=== PATIENT | female | born 1985 | race Asian ===

== ENCOUNTER 2022-02-12 11:18 | Inpatient (IN) ==
[2022-02-12] MEDS ORDERED: LIDOCAINE 1% LOCAL 20 ML VIAL INFIL PRN (11:37)
[2022-02-12] MEDS ORDERED: OXYTOCIN 30 UNITS/500 ML BAG IV PRN ×2 (11:37→12:40)
[2022-02-12] MEDS ORDERED: SODIUM CHLORIDE 0.9% 1000ML 1,000 ML IV PRN (12:33)
[2022-02-12] MEDS ORDERED: DEXTROSE 50% 50 ML SYRINGE IV PRN ×2 (12:33→15:15)
[2022-02-12] MEDS ORDERED: INSULIN REGULAR 250 UNITS in SODIUM CHLORIDE 0.9% 247.5 ML IV PRN (12:33)
[2022-02-12 12:36] LABS: Hematocrit (blood only) 32.8 % (34.1-44.9); Hemoglobin 10.2 g/dl (12.0-16.0); Mean Corpuscular Hgb Conc 31.1 g/dL (32.0-36.0); Mean Corpuscular Volume 83.7 fL (80.0-100.0); Mean Platelet Volume 11.7 fL (9.4-12.3); Platelet Count 240 K/uL (130-400); RDW Coefficient of Variation 14.8 % (11.5-14.5); RDW Standard Deviation 45.2 fL (36.4-46.3); Red Blood Count 3.92 M/uL (3.93-5.22); White Blood Count 6.24 K/ul (4.8-10.8)
[2022-02-12] MEDS: LACTATED RINGER'S 1,000 ML IV PRN ×3 (12:39→22:25)
--- NOTE | 2022-02-12 12:40 | History & Physical Report ---
Date of Service February 12, 2022 Assessment & Plan (1) 38 weeks gestation of : (2) Type 1 diabetes mellitus affecting , antepartum: (3) Supervision of elderly primigravida: Plan admit, iv, labs. check lfts. plan pitocin and del valle ripening balloon. start iv insulin protocol. reviewed trt plan. fhts categ 1. pt agrees and desires to proceed. Admission and Anticipated Discharge Date Admission Date: February 12, 2022 History of Present Illness Chief Complaint: planned induction Primary Care Provider: MIKE PCP 36yo at 38+wks ega presents to L&D with recent diagnosis of ICP and underlying pregestational diabetes. Patient denies ctx, rom or vb. +FM. Had itching hands and feet and last week had bile acids drawn. They returned today elevated and MFM contacted and although did not meet >40 parameter given ega and symptoms, rec proceeding with induction of labor. Patient called and agreed and so came to LD. PNC c/b 1. AMA 2. DM, on insulin, seeing our endo. PNL rh pos, ri, gbs neg OBH: sab x 1 GYNH: nl paps, no std Allergies Allergy/AdvReac Type Severity Reaction Status Date / Time No Known Allergies Allergy Verified 02/08/22 16:15 Home Medications Medication Instructions Recorded Confirmed Type prenat.vits,urban,nym-rwka-juqqd 1 tab PO DAILY 06/30/21 02/12/22 History acetone (urine) test (Ketone Urine #100 ea 07/25/21 02/08/22 Rx Test strips) glucagon 3 mg/actuation nasal spray 3 mg intranasal ONCE PRN 07/25/21 02/12/22 Rx hypoglycemia #2 ea pen needle, diabetic 32 gauge x #500 ea 07/25/21 02/08/22 Rx 5/32" (BD Ultra-Fine Tabatha Pen Needle) aspirin 81 mg capsule 81 mg PO DAILY 08/21/21 02/12/22 History insulin detemir U-100 100 unit/mL See Rx Instructions subcut QPM 08/21/21 02/12/22 History (3 mL) subcutaneous pen (Levemir FlexTouch U-100 Insulin) blood-glucose sensor (Dexcom G6 #9 ea 09/15/21 02/08/22 Rx Sensor device) blood-glucose transmitter (Dexcom #1 ea 09/15/21 02/08/22 Rx G6 Transmitter device) insulin aspart U-100 100 unit/mL See Rx Instructions subcut TID #30 01/10/22 02/12/22 Rx (3 mL) subcutaneous pen (Novolog mL Flexpen U-100 Insulin aspart) Patient History Medical History (Updated 02/12/22 @ 12:43 by Cindy Cuevas MD, FACOG) History of chicken pox Type 1 diabetes mellitus since 2010 Surgical History (Updated 06/30/21 @ 15:25 by Toshia Barr) No history of previous surgery Family History (Updated 06/30/21 @ 15:09 by Toshia Barr) Mother Diabetes Hypertension Thyroid disease Denies family history of Ovarian cancer Breast cancer Colorectal cancer Social History (Updated 06/30/21 @ 15:11 by Toshia Barr) Smoking Status: Never smoker Hx Alcohol Use: No Hx Substance Use: No Preferred Language: Brazilian Spaghetti [employer] Helper Required: No Beliefs That Will Affect Care: None marital status: marital status details: Manny Varun (35) [phone] Current Living Situation: Spouse Current Living Situation Comment: lives with spouse, no pets current occupational status: employed current occupation: [employer] Other Information That Helps Us Care for You: No Feels Safe at Home: Yes Safety Concerns: Feels Safe At This Time Assistive Devices: None Review of Systems as per Subjective / HPI Physical Exam Constitutional: WD/WN, vitals as above Respiratory: normal respiratory effort, lungs clear to auscultation Cardiovascular: Rate/Rhythm: regular rate and regular rhythm Gastrointestinal (Abdomen): soft gravid nt Musculoskeletal: no edema nontender calves Neurologic: grossly normal Psychiatric: A+Ox3, euthymic affect Genitourinary: OB Exam Abdomen: + vertex and + estimated weight (7-8#) Manual OB Exam: + cervical dilation fingertip, + cervical effacement 50% and + station (post) -2 OB Exam Monitor Tracing: + external FHT monitor used, + external uterine monitor used (irreg), + category I and + normal FHT variability Results & Data ([facility]) Vital Signs (Past 12 Hours) Vital Signs Temp Pulse Resp BP 02/12/22 11:38 97.7 F 75 20 113/56 L 02/12/22 11:27 75 113/56 L Coding Level of Care Code None Diagnoses 38 weeks gestation of Z3A.38 Type 1 diabetes mellitus affecting , antepartum O24.019 Supervision of elderly primigravida O09.519
[2022-02-12 13:15] LABS: BUN Creatinine Ratio 15.3 (10-20); Bilirubin Direct 0.1 mg/dl (0-0.2); Bilirubin,Total 0.5 mg/dl (0.2-1.0); Calcium 8.1 mg/dl (8.5-10.1); Creatinine Clr Calc Pharmacy 151.7 ml/min; Est GFR (African American) 137.6 ml/min; Est GFR (Non-African American) 118.7 ml/min; Globulin 3.1 gm/dl (2.5-4.0); Potassium 4.1 mmol/L (3.5-5.1); Total Protein 6.1 gm/dl (6.0-8.3)
[2022-02-12] MEDS: DEXTROSE 5% 1,000 ML IV PRN ×2 (13:33→22:30)
[2022-02-12] MEDS ORDERED: GLUCOSE 40% GEL 15 GM TUBE PO PRN (15:15)
[2022-02-12] MEDS ORDERED: GLUCOSE 10 TAB/TUBE PO PRN (15:15)
[2022-02-12] MEDS ORDERED: CARBOHYDRATES FOR HYPOGLYCEMIA PO PRN (15:15)
[2022-02-12] MEDS ORDERED: GLUCAGON FOR INJ 1 MG VIAL IM PRN (15:15)
--- NOTE | 2022-02-12 21:03 | Labor Progress Brief Note ---
Date of Service February 12, 2022 Subjective feeling some contractions Assessment & Plan (1) Supervision of elderly primigravida: (2) Type 1 diabetes mellitus affecting , antepartum: (3) Cholestasis of : Plan c/w induction. good cx change. fhts categ 1. can have epidural on demand. Admission and Anticipated Discharge Date Admission Date: February 12, 2022 Physical Exam Constitutional: WD/WN, vitals as above Genitourinary: Manual OB Exam: + cervical dilation 6 cm, + cervical effacement 90%, + station -2 and + amniotic fluid (AROM) clear OB Exam Monitor Tracing: + external FHT monitor used, + external uterine monitor used (q2 pit at 17), + category I and + normal FHT variability del valle balloon in vagina and removed and then sve as noted. Results & Data ([facility]) Vital Signs (Past 12 Hours) Vital Signs Temp Pulse Resp BP 02/12/22 19:16 97.9 F 18 02/12/22 11:38 97.7 F 75 20 113/56 L 02/12/22 20:38 58 L 02/12/22 20:38 120/64 02/12/22 20:07 53 L 02/12/22 20:07 120/60 02/12/22 19:37 55 L 02/12/22 19:37 113/54 L 02/12/22 19:06 68 02/12/22 19:06 117/55 L 02/12/22 18:37 56 L 02/12/22 18:37 114/56 L 02/12/22 18:07 54 L 02/12/22 18:07 110/58 L 02/12/22 17:37 59 L 02/12/22 17:37 117/59 L 02/12/22 17:08 53 L 02/12/22 17:08 20 117/59 L 02/12/22 16:38 49 L 02/12/22 16:38 115/55 L 02/12/22 16:13 52 L 02/12/22 16:13 20 112/59 L 02/12/22 15:37 58 L 02/12/22 15:37 118/62 02/12/22 15:07 58 L 02/12/22 15:07 20 107/58 L 02/12/22 14:38 56 L 02/12/22 14:38 109/67 02/12/22 14:07 57 L 20 02/12/22 14:07 106/60 02/12/22 13:37 63 02/12/22 13:37 116/62 02/12/22 11:24 20 02/12/22 11:24 97.7 F 20 02/12/22 13:06 59 L 20 02/12/22 13:06 111/62 02/12/22 11:27 75 113/56 L Coding Level of Care Code None Diagnoses Supervision of elderly primigravida O09.519 Type 1 diabetes mellitus affecting , antepartum O24.019 Cholestasis of O26.619; K83.1
[2022-02-12] MEDS ORDERED: ePHEDrine sulfate 50 MG/ML AMP ONE (21:42)
[2022-02-12] MEDS ORDERED: fentaNYL citrate 100 MCG/2 ML VIAL ONE (21:42)
[2022-02-12] MEDS ORDERED: LIDOCAINE 2%/EPINEPHRINE 1:200,000 20 ML SDV ONE (21:43)
[2022-02-12] MEDS ORDERED: SODIUM CHLORIDE 0.9% INJ 10 ML VIAL ONE (21:43)
[2022-02-12] MEDS ORDERED: fentaNYL 2MCG/ML ROPIVACAINE 1.25MG/ML 100 ML BAG EPI ONE (21:43)
[2022-02-12] MEDS ORDERED: BUPIVACAINE 0.25% 30 ML VIAL ONE (21:43)
[2022-02-12] MEDS ORDERED: fentaNYL 2MCG/ML ROPIVACAINE 1.25MG/ML 100 ML BAG EPI PRN (21:51)
[2022-02-12] MEDS ORDERED: diphenhydrAMINE 50 MG/ML VIAL IV PRN (21:51)
[2022-02-12] MEDS ORDERED: NALBUPHINE HCL INJ 10 MG/ML AMP IV PRN (21:51)
[2022-02-12] MEDS ORDERED: NALOXONE HCL 1 MG in SODIUM CHLORIDE 0.9% 1000ML 1,000 ML IV PRN (21:51)
[2022-02-12] MEDS ORDERED: NALOXONE HCL 0.4 MG/1 ML VIAL/CARP IV PRN (21:51)
[2022-02-12] MEDS ORDERED: ePHEDrine sulfate 50 MG/ML AMP IV PRN (21:51)
[2022-02-12] MEDS ORDERED: ONDANSETRON INJ 2 MG/ML 2 ML VIAL IV PRN (21:51)
--- NOTE | 2022-02-12 21:51 | Anesthesiology Consultation ---
Date of Service February 12, 2022 Assessment & Plan ASA ASA3 Proposed Anesthesia Anesthesia Type: Labor Epidural Risk / Benefits Reviewed With: PT / POA / Parent / Guardian, Accepts Plan and Informed Consent Obtained History Height/Weight Height: 5 ft 9 in Weight: 81.193 kg Allergies Allergy/AdvReac Type Severity Reaction Status Date / Time No Known Allergies Allergy Verified 02/08/22 16:15 Medications Home Medications Medication Instructions Recorded Confirmed Last Taken prenat.vits,urban,dci-hhei-nqxbt 1 tab PO DAILY 06/30/21 02/12/22 02/11/22 09:00 acetone (urine) test (Ketone Urine #100 ea 07/25/21 02/12/22 Unknown Test strips) glucagon 3 mg/actuation nasal spray 3 mg intranasal ONCE PRN 07/25/21 02/12/22 Unknown hypoglycemia #2 ea pen needle, diabetic 32 gauge x #500 ea 07/25/21 02/08/22 Unknown 32" (BD Ultra-Fine Tabatha Pen Needle) aspirin 81 mg capsule 81 mg PO DAILY 08/21/21 02/12/22 02/11/22 14:00 insulin detemir U-100 100 unit/mL See Rx Instructions subcut QPM 08/21/21 02/12/22 02/12/22 07:30 (3 mL) subcutaneous pen (Levemir FlexTouch U-100 Insulin) blood-glucose sensor (Dexcom G6 #9 ea 09/15/21 02/12/22 Unknown Sensor device) blood-glucose transmitter (Dexcom #1 ea 09/15/21 02/08/22 Unknown G6 Transmitter device) insulin aspart U-100 100 unit/mL See Rx Instructions subcut TID #30 01/10/22 02/12/22 02/12/22 07:30 (3 mL) subcutaneous pen (Novolog mL Flexpen U-100 Insulin aspart) Active Medications Generic Name Dose Route Start Last Admin Trade Name Freq PRN Reason Stop Dose Admin Lactated Ringer's 1,000 mls @ 125 mls/hr 02/12/22 11:37 02/12/22 22:25 Lr IV 02/14/22 11:36 125 mls/hr .Q8H PRN Administration L&D Protocol Protocol Dextrose 1,000 mls @ 100 mls/hr 02/12/22 12:33 02/12/22 22:30 D5w IV 03/14/22 12:32 100 mls/hr .Q10H PRN Administration BSG 180 or below Protocol Insulin Human Regular 250 250 mls @ 1 mls/hr 02/12/22 12:33 02/12/22 22:29 units/ Sodium Chloride IV 03/14/22 12:32 0.5 units/hr .Q24H PRN 0.5 mls/hr BSG 80mg/dL or ABOVE Titration Protocol 1 UNITS/HR Oxytocin 30 units in 500 mls @ 17 mls/hr 02/12/22 12:40 02/12/22 18:00 Pitocin IV 02/14/22 12:39 1.02 units/hr .Q24H PRN 17 mls/hr Labor Induction/Augmentation Titration Protocol 1.02 UNITS/HR Past Medical History Medical History (Updated 02/12/22 @ 21:03 by Cindy Cuevas MD, FACOG) Cholestasis during History of chicken pox Type 1 diabetes mellitus since 2010 Exercise / Class Metabolic Activity II 4-5 Yardwork/Stairs/Walk up hill Past Family History Family History (Updated 06/30/21 @ 15:09 by Toshia Barr) Mother Diabetes Hypertension Thyroid disease Denies family history of Ovarian cancer Breast cancer Colorectal cancer Past Surgical History Surgical History (Updated 06/30/21 @ 15:25 by Toshia Barr) No history of previous surgery Past Anesthesia History No Hx of Anesthesia Complications and No Family Hx of Anesthesia Complications History of PONV No Hx of PONV and No Hx of Motion Sickness Social History Smoking Status: Never smoker Hx Alcohol Use: No Hx Substance Use: No Review of Systems denies fever/cough/ colds/ chest pain/ SOB/ KURTIS denies KURTIS Physical Exam Vital Signs Last Vital Signs Temp 36.7 C 02/12/22 21:03 Pulse 56 L 02/12/22 22:31 Resp 18 02/12/22 22:15 BP 103/50 L 02/12/22 22:31 Pulse Ox 99 02/12/22 22:30 ENMT Mouth: no TMJ abnormality and no dentition abnormality Thyromental Distance: > or= 3.5 Finger Breadths Mallampati Class: II Neck neck extension not limited Respiratory normal respiratory effort; no respiratory distress Auscultation: lungs clear to auscultation bilaterally Cardiovascular Rate/Rhythm: regular rate and regular rhythm Neurologic moves all extremities Psychiatric Orientation: alert and oriented x 3 Testing Laboratory Results 02/12/22 12:06 02/12/22 12:06 02/12/22 02/12/22 02/12/22 22:27 21:30 20:30 POC Glucose 86 106 H 113 H 02/12/22 02/12/22 02/12/22 19:33 19:03 17:59 POC Glucose 96 66 L* 77 02/12/22 02/12/22 02/12/22 17:01 15:59 15:29 POC Glucose 77 94 78 02/12/22 02/12/22 02/12/22 14:56 14:00 13:08 POC Glucose 54 L* 78 115 H 02/12/22 12:12 POC Glucose 129 H
[2022-02-13] MEDS: LACTATED RINGER'S 1,000 ML IV PRN (05:58)
--- NOTE | 2022-02-13 06:20 | Labor Progress Brief Note ---
Date of Service February 13, 2022 Subjective late entry, pt pushing, some bright red bleeding from likely laceration, asked to see pt by nursing Assessment & Plan (1) Type 1 diabetes mellitus affecting , antepartum: (2) Cholestasis of : (3) Supervision of elderly primigravida: (4) 38 weeks gestation of : Plan pt pushing and offered vacuum assistance as sometimes noting to nursing fatigue but she desires to cont to push on her own. will watch fhts and progress. Admission and Anticipated Discharge Date Admission Date: February 12, 2022 Physical Exam Constitutional: WD/WN, vitals as above Genitourinary: Manual OB Exam: + cervical dilation 10 cm, + cervical effacement 100% and + station + 3 OB Exam Monitor Tracing: + external FHT monitor used, + external uterine monitor used (q2-3), + category II, + normal FHT variability (+scalp stim response) and + variable decelerations bleeding noted but not as active now as cephalic lower. Results & Data ([facility]) Vital Signs (Past 12 Hours) Vital Signs Temp Pulse Resp BP Pulse Ox 02/12/22 19:16 97.9 F 18 02/13/22 06:15 66 99 02/13/22 06:12 85 92 02/13/22 06:10 98 H 98 02/13/22 06:05 18 02/13/22 06:05 98.4 F 18 02/13/22 06:05 98.4 F 76 18 99 02/13/22 06:02 83 213/112 H 02/13/22 06:00 99 02/13/22 06:00 84 02/13/22 06:00 86 92 02/13/22 05:55 72 99 02/13/22 05:50 100 H 99 02/13/22 05:45 79 99 02/13/22 05:40 103 H 100 02/13/22 05:35 76 98 02/13/22 05:32 82 140/95 02/13/22 05:30 78 99 02/13/22 05:25 80 99 02/13/22 05:20 77 96 02/13/22 05:18 103 H 93 02/13/22 05:17 76 124/57 L 02/13/22 05:15 100 H 100 02/13/22 05:10 98 H 92 02/13/22 05:05 74 99 02/13/22 05:04 73 92 02/13/22 05:01 20 02/13/22 05:01 97.9 F 20 02/13/22 05:03 75 116/56 L 02/13/22 05:00 105 H 99 02/13/22 04:58 98 H 93 02/13/22 04:55 86 100 02/13/22 04:50 100 02/13/22 04:50 79 02/13/22 04:50 93 H 85 L 02/13/22 04:48 81 115/56 L 02/13/22 04:45 93 H 100 02/13/22 04:40 75 100 02/13/22 04:37 66 92 02/13/22 04:35 96 H 100 02/13/22 04:31 71 114/54 L 02/13/22 04:30 72 100 02/13/22 04:27 77 90 02/13/22 04:25 80 100 02/13/22 04:20 70 100 02/13/22 04:19 76 94 02/13/22 04:17 74 118/58 L 02/13/22 04:15 74 99 02/13/22 04:14 73 91 02/13/22 04:10 85 99 02/13/22 04:08 70 92 02/13/22 04:05 76 99 02/13/22 04:03 69 113/52 L 02/13/22 04:00 71 100 02/13/22 03:58 68 93 02/13/22 03:56 22 02/13/22 03:56 98.4 F 22 02/13/22 03:55 77 100 02/13/22 03:50 70 100 02/13/22 03:49 74 93 02/13/22 03:48 76 117/57 L 02/13/22 03:45 82 91 02/13/22 03:42 100 H 93 02/13/22 03:40 71 100 02/13/22 03:35 70 93 02/13/22 03:30 67 95 02/13/22 03:29 68 91 02/13/22 03:25 65 100 02/13/22 03:20 56 L 100 02/13/22 03:18 53 L 89/52 L 02/13/22 03:15 52 L 100 02/13/22 03:10 53 L 100 02/13/22 03:05 56 L 100 02/13/22 03:03 58 L 123/57 L 02/13/22 03:00 63 98 02/13/22 02:55 63 100 02/13/22 02:50 61 100 02/13/22 02:48 57 L 110/54 L 02/13/22 02:45 61 100 02/13/22 02:40 62 100 02/13/22 02:35 60 100 02/13/22 02:32 58 L 108/55 L 02/13/22 02:30 68 100 02/13/22 02:29 63 91 02/13/22 02:25 59 L 100 02/13/22 02:20 56 L 100 02/13/22 02:18 52 L 109/55 L 02/13/22 02:12 18 02/13/22 02:12 98.1 F 18 02/13/22 02:15 51 L 100 02/13/22 02:10 68 100 02/13/22 02:05 65 100 02/13/22 02:02 55 L 113/63 02/13/22 02:00 60 99 02/13/22 01:55 53 L 99 02/13/22 01:50 57 L 99 02/13/22 01:48 56 L 113/59 L 02/13/22 01:45 57 L 99 02/13/22 01:40 59 L 100 02/13/22 01:35 64 100 02/13/22 01:34 66 120/59 L 02/13/22 01:30 87 16 100 02/13/22 01:25 62 100 02/13/22 01:20 57 L 99 02/13/22 01:17 57 L 112/57 L 02/13/22 01:15 61 100 02/13/22 01:10 67 100 02/13/22 01:05 66 100 02/13/22 01:01 59 L 113/59 L 02/13/22 01:00 55 L 100 02/13/22 00:55 58 L 100 02/13/22 00:50 60 100 02/13/22 00:47 70 117/58 L 02/13/22 00:45 100 02/13/22 00:45 61 02/13/22 00:45 65 90 02/13/22 00:31 18 02/13/22 00:31 98.1 F 18 02/13/22 00:40 58 L 100 02/13/22 00:35 100 02/13/22 00:35 61 02/13/22 00:35 65 90 02/13/22 00:30 70 100 02/13/22 00:27 78 91 02/13/22 00:25 63 99 02/13/22 00:20 60 100 02/13/22 00:15 64 99 02/13/22 00:16 67 95/52 L 02/13/22 00:10 60 99 02/13/22 00:05 64 96 02/13/22 00:06 66 88 L 02/13/22 00:02 58 L 101/52 L 02/13/22 00:00 60 94 02/12/22 23:59 91 02/12/22 23:59 57 L 02/12/22 23:55 99 02/12/22 23:55 63 02/12/22 23:50 100 02/12/22 23:50 68 02/12/22 23:47 63 02/12/22 23:47 105/56 L 02/12/22 23:45 100 02/12/22 23:45 62 02/12/22 23:40 100 02/12/22 23:40 61 02/12/22 23:35 99 02/12/22 23:35 72 02/12/22 23:33 92 02/12/22 23:33 75 02/12/22 23:33 98/56 L 02/12/22 23:30 99 02/12/22 23:30 65 02/12/22 23:25 99 02/12/22 23:25 62 02/12/22 23:20 98 02/12/22 23:20 64 02/12/22 23:20 108/54 L 02/12/22 23:17 65 02/12/22 23:17 102/50 L 02/12/22 23:15 99 02/12/22 23:15 65 02/12/22 23:09 16 02/12/22 23:09 98.1 F 16 02/12/22 23:10 99 02/12/22 23:10 70 02/12/22 23:05 100 02/12/22 23:05 73 02/12/22 23:01 61 02/12/22 23:01 93/53 L 02/12/22 23:00 98 02/12/22 23:00 56 L 02/12/22 22:55 99 02/12/22 22:55 59 L 02/12/22 22:50 99 02/12/22 22:50 62 02/12/22 22:45 16 02/12/22 22:45 16 02/12/22 22:28 18 02/12/22 22:28 18 02/12/22 22:46 60 02/12/22 22:46 97/53 L 02/12/22 22:45 99 02/12/22 22:45 58 L 02/12/22 22:40 100 02/12/22 22:40 64 02/12/22 22:35 99 02/12/22 22:35 59 L 02/12/22 22:30 99 02/12/22 22:30 58 L 02/12/22 22:31 56 L 02/12/22 22:31 103/50 L 02/12/22 22:25 100 02/12/22 22:25 57 L 02/12/22 22:26 57 L 02/12/22 22:26 101/51 L 02/12/22 22:22 62 02/12/22 22:22 111/53 L 02/12/22 22:20 100 02/12/22 22:20 66 02/12/22 22:20 106/57 L 02/12/22 22:15 18 02/12/22 22:15 18 02/12/22 22:18 66 02/12/22 22:18 119/58 L 02/12/22 22:16 72 02/12/22 22:16 129/57 L 02/12/22 22:15 100 02/12/22 22:15 71 02/12/22 22:14 67 02/12/22 22:14 119/56 L 02/12/22 22:10 22 02/12/22 22:10 22 02/12/22 22:12 65 02/12/22 22:12 124/58 L 02/12/22 22:10 100 02/12/22 22:10 69 02/12/22 22:05 99 02/12/22 22:05 66 02/12/22 22:06 72 02/12/22 22:06 135/63 02/12/22 22:00 100 02/12/22 22:00 70 02/12/22 21:55 100 02/12/22 21:55 77 02/12/22 21:50 100 02/12/22 21:50 75 02/12/22 21:37 71 02/12/22 21:37 117/57 L 02/12/22 21:03 18 02/12/22 21:03 98.1 F 18 02/12/22 21:07 68 02/12/22 21:07 98/52 L 02/12/22 20:38 58 L 02/12/22 20:38 120/64 02/12/22 20:07 53 L 02/12/22 20:07 120/60 02/12/22 19:37 55 L 02/12/22 19:37 113/54 L 02/12/22 19:06 68 02/12/22 19:06 117/55 L 02/12/22 18:37 56 L 02/12/22 18:37 114/56 L Coding Level of Care Code None Diagnoses Type 1 diabetes mellitus affecting , antepartum O24.019 Cholestasis of O26.619; K83.1 Supervision of elderly primigravida O09.519 38 weeks gestation of Z3A.38
[2022-02-13] MEDS ORDERED: OXYTOCIN 30 UNITS/500 ML BAG IV PRN (07:02)
[2022-02-13] MEDS ORDERED: OXYTOCIN 20 UNITS in LACTATED RINGER'S 1,000 ML IV SCH (07:02)
[2022-02-13] MEDS ORDERED: BENZOCAINE 20% AER SPR 82.5 GM CAN EXT PRN (07:02)
[2022-02-13] MEDS ORDERED: DIPHTHERIA/TETANUS/PERTUSSIS 0.5 ML SYR/VIAL IM ONE (07:02)
[2022-02-13] MEDS ORDERED: HYDROCORTISONE ACETATE 25 MG SUPP PR PRN (07:02)
[2022-02-13] MEDS ORDERED: ACETAMINOPHEN 325 MG TAB PO PRN (07:02)
[2022-02-13] MEDS ORDERED: oxyCODONE/ACETAMINOPHEN 5mg/325mg TAB PO PRN (07:02)
--- NOTE | 2022-02-13 07:03 | Delivery Summary ---
Vaginal Delivery Summary Date of Service February 13, 2022 Vaginal Delivery Summary and 3rd Degree LAC The patient was pushing, deep variable decels noted and she was complaining of maternal exhaustion. Offered and desired outlet vacuum. Additional local lidocaine injected 1% at perineum as suspected need for episiotomy. C/C/+3. Over 2 contractions with one pop off the cephalic was delivered over mediolateral episiotomy via vacuum assisted vaginal delivery. A loose nuchal x 1 reduced at perineum. Then with further pushing there was rapid delivery of shoulders and body for viable male Apgars 8 and 9. Mouth and nose bulb suctioned Infant was vigorous and crying at . Recent meconium stained fluid was noted. Cord clamped at 30 seconds of life and to maternal abdomen where the cord was then doubly clamped and cut. Placenta delivered spontaneously and intact, three-vessel cord. Hemostasis achieved with dilute pitocin and uterine massage and drainage of the bladder for approximately 120 cc under sterile conditions. Cervix and sulci intact. Laceration was 3rd degree and repaired in layers with 3-0 and 2-0 vicryl and right labial laceration also reapproximated with 3-0 vicryl. EBL 300 cc. Mother and baby stable in recovery. Of note, prior to delivery due to vaginal lacerations about 200cc blood loss noted. [facility] Vaginal Delivery Charge Delivery Type Details: and 3rd Degree LAC
--- NOTE | 2022-02-13 07:16 | Anesthesia Procedure Note ---
Date of Service February 13, 2022 Anesthesia Post Epidural Note Vital Signs Vital Signs: Temp Pulse Resp BP Pulse Ox 36.7 C 78 18 110/53 L 97 02/13/22 06:53 02/13/22 07:11 02/13/22 06:53 02/13/22 07:11 02/13/22 06:50 Pain Intensity Lower Abdomen: Pain Intensity: 0 Notes Mental Status: alert / awake / arousable and participated in evaluation Nausea / Vomiting: adequately controlled Pain: adequately controlled Airway Patency, RR, SpO2: stable & adequate BP & HR: stable & adequate Hydration State: stable & adequate Neuraxial Anesthesia: was administered and sensory block is resolving Anesthetic Complications: no major complications apparent Epidural: Removed without complications and With tip intact
[2022-02-13] MEDS ORDERED: PHARMACY GLYCEMIC MGMT CONSULT PRN ×3 (07:58→17:27)
[2022-02-13] MEDS ORDERED: INSULIN ASPART PER UNIT SC SCH ×2 (08:30→16:30)
[2022-02-13] MEDS ORDERED: CARBOHYDRATES FOR HYPOGLYCEMIA PO PRN (08:30)
[2022-02-13] MEDS ORDERED: GLUCAGON FOR INJ 1 MG VIAL IM PRN (08:30)
[2022-02-13] MEDS ORDERED: GLUCOSE 10 TAB/TUBE PO PRN (08:30)
[2022-02-13] MEDS ORDERED: GLUCOSE 40% GEL 15 GM TUBE PO PRN (08:30)
[2022-02-13] MEDS ORDERED: DEXTROSE 50% 50 ML SYRINGE IV PRN (08:30)
[2022-02-13] MEDS ORDERED: INSULIN DETEMIR SC ONE (09:45)
[2022-02-13 10:44] LABS: BUN Creatinine Ratio 12.7 (10-20); Calcium 7.7 mg/dl (8.5-10.1); Creatinine Clr Calc Pharmacy 162.7 ml/min; Est GFR (African American) 140.8 ml/min; Est GFR (Non-African American) 121.5 ml/min; Magnesium 1.5 mg/dl (1.7-2.4); Potassium 3.7 mmol/L (3.5-5.1)
[2022-02-13] MEDS: MAGNESIUM SULFATE / D5W 1 GM/100 ML BAG IV SCH ×3 (12:20→16:36)
[2022-02-13] MEDS: DOCUSATE SODIUM 100 MG CAP PO SCH ×2 (14:43→20:07)
[2022-02-13] MEDS: PRENATAL VITAMIN 1 TAB PO SCH (14:43)
--- NOTE | 2022-02-13 16:13 | Hospitalist Consultation ---
Date of Consultation February 13, 2022 Assessment & Plan (1) Type 1 diabetes mellitus affecting , antepartum: - Recommend carb counting - Kathy Brand PA-C spoke with Brandon Tinoco PA-C with endocrinology office who recommended that patient cut her insulin dose in half (she had a BS of 224 and took 24 units of NovoLog) if she is to do 1 unit per 20 points then should be closer to 12. - Patient states she does get symptomatic with low blood sugars and is able to tell when her sugars are running low. - Patient has a good understanding of her diabetes and BS management and ok for her to adjust and administer her own medications but will order glycemic management - Hospitalist team will sign off patient (2) Hypomagnesemia: - Replacing - Continue to monitor per primary team Supervising Physician Co-Signing Physician Notes Patient seen and examined at bedside. I obtained a history and physical examination during face to face encounter. I reviewed above note and agree with it. I discussed plan of care with patient and APC Rudolph Patient is a well controlled diabetic. She can continue her home insulin regimen. History of Present Illness Reason for Consultation: Management of Insulin Requesting Physician: Dr Cindy Cuevas Attending Physician: Cindy Cuevas MD, FACOG History of Present Illness This patient is a 36 year old female with a past medical history of Type I Diabetes diagnosed 11 years ago and was admitted for induction yesterday at 38 weeks gestation due to cholestasis of . A consult was placed with the hospitalist service for insulin management. Patient states that she used to do carb counting but has gotten away from this because her diet has been consistent at home. Patient tells me that at home she is maintained fairly well on Levemir and NovoLog. Patient tells me that usually she does 1 unit for every 20 points of blood sugar. She tells me that she does get symptoms when she is low. She states she is very comfortable dosing her own insulin and wishes to continue with the Levemir and NovoLog as she has been doing. Her last HgbA1C was 6.0 02/05/22 and 5.6 in December 2021. Patient has a subcutaneous 10 day monitor and she tells me that it expires on the . The nurses have also been checking her blood sugars and they have been consistent with her readings. Patient seen and evaluate at beside with Dr Saborio Allergies Allergy/AdvReac Type Severity Reaction Status Date / Time No Known Allergies Allergy Verified 02/08/22 16:15 Home Medications Medication Instructions Recorded Confirmed Type prenat.vits,urban,huy-vvzs-thgmh 1 tab PO DAILY 06/30/21 02/12/22 History acetone (urine) test (Ketone Urine #100 ea 07/25/21 02/12/22 Rx Test strips) glucagon 3 mg/actuation nasal spray 3 mg intranasal ONCE PRN 07/25/21 02/12/22 Rx hypoglycemia #2 ea pen needle, diabetic 32 gauge x #500 ea 07/25/21 02/08/22 Rx 5/32" (BD Ultra-Fine Tabatha Pen Needle) aspirin 81 mg capsule 81 mg PO DAILY 08/21/21 02/12/22 History insulin detemir U-100 100 unit/mL See Rx Instructions subcut QPM 08/21/21 02/12/22 History (3 mL) subcutaneous pen (Levemir FlexTouch U-100 Insulin) blood-glucose sensor (Dexcom G6 #9 ea 09/15/21 02/12/22 Rx Sensor device) blood-glucose transmitter (Dexcom #1 ea 09/15/21 02/08/22 Rx G6 Transmitter device) insulin aspart U-100 100 unit/mL See Rx Instructions subcut TID #30 01/10/22 02/12/22 Rx (3 mL) subcutaneous pen (Novolog mL Flexpen U-100 Insulin aspart) Patient History Medical History Cholestasis during History of chicken pox Type 1 diabetes mellitus since 2010 Surgical History No history of previous surgery Family History Mother Diabetes Hypertension Thyroid disease Denies family history of Ovarian cancer Breast cancer Colorectal cancer Social History Smoking Status: Never smoker Hx Alcohol Use: No Hx Substance Use: No Preferred Language: Singaporean Coper Hand Required: No Beliefs That Will Affect Care: None marital status: marital status details: Manny Bond (36) [phone] Current Living Situation: Spouse Current Living Situation Comment: lives with spouse, no pets current occupational status: employed current occupation: [employer] Feels Safe at Home: Yes Assistive Devices: None Review of Systems Constitutional: + fatigue; no fever and no chills Ear, Nose, Mouth, Throat: no nasal congestion and no epistaxis Respiratory: no cough, no chest congestion and no dyspnea Cardiovascular: no chest pain, no dyspnea and no syncope Gastrointestinal: no nausea, no vomiting, no change in bowel habits and no constipation Integumentary: no rash, no lesions, no wounds and no pruritus Neurologic: no falls, no loss of sensation and no syncope Endocrine: + fatigue; no polydipsia, no polyphagia and no polyuria Physical Exam Constitutional: WD/WN, vitals as above ENMT: external ear and nose normal, oropharynx normal Neck: trachea midline, no thyromegaly Respiratory: normal respiratory effort, lungs clear to auscultation Cardiovascular: RRR, no murmur, no edema Gastrointestinal (Abdomen): normal bowel sounds, soft, nontender, no hepatosplenomegaly Skin: no rashes, warm and dry Results & Data Results & Data ([facility]) Vital Signs (Past 12 Hours) Vital Signs Temp Pulse Pulse Resp BP BP Pulse Ox 02/13/22 12:30 36.7 C 80 18 109/57 L 100 02/13/22 09:30 36.6 C 63 18 99/58 L 100 02/13/22 06:53 36.7 C 18 02/13/22 09:11 71 02/13/22 09:11 107/53 L 02/13/22 08:56 71 02/13/22 08:56 105/59 L 02/13/22 08:41 73 02/13/22 08:41 104/52 L 02/13/22 08:26 71 02/13/22 08:26 109/54 L 02/13/22 08:11 84 02/13/22 08:11 117/55 L 02/13/22 07:11 78 110/53 L 02/13/22 06:53 69 113/56 L 02/13/22 06:50 70 97 02/13/22 06:45 73 99 02/13/22 06:40 83 99 02/13/22 06:36 110 H 94 02/13/22 06:35 75 98 02/13/22 06:32 75 120/60 02/13/22 06:30 92 H 99 02/13/22 06:25 90 99 02/13/22 06:20 84 98 02/13/22 06:17 94 H 104/66 02/13/22 06:15 66 99 02/13/22 06:12 85 92 02/13/22 06:10 98 H 98 02/13/22 06:05 18 02/13/22 06:05 36.9 C 18 02/13/22 06:05 36.9 C 76 18 99 02/13/22 06:02 83 213/112 H 02/13/22 06:00 99 02/13/22 06:00 84 02/13/22 06:00 86 92 02/13/22 05:55 72 99 02/13/22 05:50 100 H 99 02/13/22 05:45 79 99 02/13/22 05:40 103 H 100 02/13/22 05:35 76 98 02/13/22 05:32 82 140/95 02/13/22 05:30 78 99 02/13/22 05:25 80 99 02/13/22 05:20 77 96 02/13/22 05:18 103 H 93 02/13/22 05:17 76 124/57 L 02/13/22 05:15 100 H 100 02/13/22 05:10 98 H 92 02/13/22 05:05 74 99 02/13/22 05:04 73 92 02/13/22 05:01 20 02/13/22 05:01 36.6 C 20 02/13/22 05:03 75 116/56 L 02/13/22 05:00 105 H 99 02/13/22 04:58 98 H 93 02/13/22 04:55 86 100 02/13/22 04:50 100 02/13/22 04:50 79 02/13/22 04:50 93 H 85 L 02/13/22 04:48 81 115/56 L 02/13/22 04:45 93 H 100 02/13/22 04:40 75 100 02/13/22 04:37 66 92 02/13/22 04:35 96 H 100 02/13/22 04:31 71 114/54 L 02/13/22 04:30 72 100 02/13/22 04:27 77 90 02/13/22 04:25 80 100 02/13/22 04:20 70 100 02/13/22 04:19 76 94 02/13/22 04:17 74 118/58 L 02/13/22 04:15 74 99 02/13/22 04:14 73 91 02/13/22 04:10 85 99 O2 Del Method 02/13/22 12:30 Room Air 02/13/22 09:30 Room Air 02/13/22 06:53 02/13/22 09:11 02/13/22 09:11 02/13/22 08:56 02/13/22 08:56 02/13/22 08:41 02/13/22 08:41 02/13/22 08:26 02/13/22 08:26 02/13/22 08:11 02/13/22 08:11 02/13/22 07:11 02/13/22 06:53 02/13/22 06:50 02/13/22 06:45 02/13/22 06:40 02/13/22 06:36 02/13/22 06:35 02/13/22 06:32 02/13/22 06:30 02/13/22 06:25 02/13/22 06:20 02/13/22 06:17 02/13/22 06:15 02/13/22 06:12 02/13/22 06:10 02/13/22 06:05 02/13/22 06:05 02/13/22 06:05 02/13/22 06:02 02/13/22 06:00 02/13/22 06:00 02/13/22 06:00 02/13/22 05:55 02/13/22 05:50 02/13/22 05:45 02/13/22 05:40 02/13/22 05:35 02/13/22 05:32 02/13/22 05:30 02/13/22 05:25 02/13/22 05:20 02/13/22 05:18 02/13/22 05:17 02/13/22 05:15 02/13/22 05:10 02/13/22 05:05 02/13/22 05:04 02/13/22 05:01 02/13/22 05:01 02/13/22 05:03 02/13/22 05:00 02/13/22 04:58 02/13/22 04:55 02/13/22 04:50 02/13/22 04:50 02/13/22 04:50 02/13/22 04:48 02/13/22 04:45 02/13/22 04:40 02/13/22 04:37 02/13/22 04:35 02/13/22 04:31 02/13/22 04:30 02/13/22 04:27 02/13/22 04:25 02/13/22 04:20 02/13/22 04:19 02/13/22 04:17 02/13/22 04:15 02/13/22 04:14 02/13/22 04:10 Laboratory Results Abnormal lab results 02/12/22 02/12/22 02/12/22 Range/Units 19:03 20:30 21:30 Sodium (136-145) mmol/L Creatinine (0.6-1.2) mg/dl Glucose (70-99(Fasting)) mg/dl POC Glucose 66 L* 113 H 106 H (70-99) mg/dl Calcium (8.5-10.1) mg/dl Magnesium (1.7-2.4) mg/dl 02/13/22 02/13/22 02/13/22 Range/Units 00:31 01:29 06:28 Sodium (136-145) mmol/L Creatinine (0.6-1.2) mg/dl Glucose (70-99(Fasting)) mg/dl POC Glucose 110 H 100 H 101 H (70-99) mg/dl Calcium (8.5-10.1) mg/dl Magnesium (1.7-2.4) mg/dl 02/13/22 02/13/22 Range/Units 10:00 12:26 Sodium 135 L (136-145) mmol/L Creatinine 0.55 L (0.6-1.2) mg/dl Glucose 123 H (70-99(Fasting)) mg/dl POC Glucose 213 H (70-99) mg/dl Calcium 7.7 L (8.5-10.1) mg/dl Magnesium 1.5 L (1.7-2.4) mg/dl PG Care Time/CCT Total # of Minutes Spent Total Time Spent with Patient: Total time spent is greater than 50% in coordination of care (as documented) at patient's floor/unit and/or counseling patient: Coding Level of Care Code 33653 Inpt Consult Level 2 Medical Decision Making Low Complexity Diagnoses Type 1 diabetes mellitus affecting , antepartum O24.019 Hypomagnesemia E83.42 Time Spent (min) 20
[2022-02-13] MEDS: INSULIN ASPART PER SC SCH ×2 (18:09→21:52)
[2022-02-13] MEDS: IBUPROFEN 600 MG TAB PO PRN (20:07)
[2022-02-14 06:34] LABS: Hematocrit (blood only) 24.1 % (34.1-44.9); Hemoglobin 7.6 g/dl (12.0-16.0)
--- NOTE | 2022-02-14 06:34 | Obstetrical Progress Note ---
Date of Service <Awais Jones - Last Filed: 02/14/22 07:17> February 14, 2022 Assessment & Plan <Awais Jones - Last Filed: 02/14/22 07:17> (1) Vaginal delivery: - Feels well today. Eating well, voiding well, ambulating well. - Pain well controlled with ibuprofen 600mg Q4H PRN - Routine care -- OOB, ambulation, diet progression as tolerated - After discharge will have 6 week follow-up with Dr. Cuevas. - Hip pain most likely due to prolonged pushing. - Patient wanted to go home today but will keep one more day due to patient having episiotomy. No pain in area at this time. (2) Type 1 diabetes mellitus affecting , antepartum: - Medicine team consulted. Appreciate recommendations. - Well controlled on Levemir and NovoLog - Will cut insulin dosing in half - Continue to monitor glucose while here. Day #:: 1 <Toña Servin MD - Last Filed: 02/14/22 07:23> (1) Vaginal delivery: (2) Type 1 diabetes mellitus affecting , antepartum: Subjective <Awais Jones - Last Filed: 02/14/22 07:17> Ambulation: ambulating normally Voiding: no voiding problems Passing Gas:: Yes Diet Tolerance:: regular diet Lochia:: Small Feeding Type:: breast feeding Current Pain Level(1-10): 0 Patient states that she is having a little bit of trouble with lifting her L leg when she is walking. She feels pain down into her hip "joint". Review of Systems Denies fever, chills, sweats Denies shortness of breath, difficulty breathing, chest pain, palpitations, chest pressure. Denies breast pain. Denies dysuria. Denies headache or changes in vision. Physical Exam <Awais AguilarKatie Dezkathleen - Last Filed: 02/14/22 07:17> General: Alert, oriented. No acute distress. Cardiac: Regular rate and rhythm, no murmurs/rubs/gallops. Respiratory: Clear to auscultation bilaterally a/p, no wheezes/rales/rhonchi. No increased work of breathing. Symmetrical chest rise. No respiratory distress. Abdomen: Soft, nontender, nondistended. Bowel sounds present. Uterus: Uterine fundus firm, palpable 2 cm below umbilicus. Lower Extremities: No lower extremity edema or swelling. No deep calf pain. Claire's negative bilaterally. Results & Data ([facility]) <Awais Jones DO - Last Filed: 02/14/22 07:17> Vital Signs (Past 12 Hours) Vital Signs Temp Pulse Resp BP 02/14/22 04:40 36.8 C 77 18 108/56 L 02/14/22 00:00 36.3 C L 73 18 107/61 02/13/22 20:10 36.6 C 83 18 105/57 L <Toña Servin MD - Last Filed: 02/14/22 07:23> Co-Signing Physician Notes Resident Physician Supervision Note: I interviewed and examined the patient. Discussed with Dr. Jones and agree with findings and plan as documented in the note. Any exceptions or clarifications are listed here: [ ] Documented By: Toña Servin MD, FACOG Resident Activity Tracking <Awais Jones DO - Last Filed: 02/14/22 07:17> Resident Involvement: Resident Care Provided Care Provided: OB Delivery
[2022-02-14] MEDS: PRENATAL VITAMIN 1 TAB PO SCH (07:53)
[2022-02-14] MEDS: DOCUSATE SODIUM 100 MG CAP PO SCH ×2 (07:53→20:28)
[2022-02-14] MEDS: INSULIN DETEMIR SC SCH (08:16)
[2022-02-14] MEDS: INSULIN ASPART PER SC SCH ×4 (08:18→21:13)
[2022-02-14] MEDS: IBUPROFEN 600 MG TAB PO PRN (20:28)
[2022-02-15] MEDS: IBUPROFEN 600 MG TAB PO PRN ×2 (02:10→08:51)
--- NOTE | 2022-02-15 06:57 | Obstetrical Progress Note ---
Date of Service <Awais Jones - Last Filed: 02/15/22 07:50> February 15, 2022 Assessment & Plan <Awais Jones - Last Filed: 02/15/22 07:50> (1) Vaginal delivery: - Feels well today. Eating well, voiding well with some leakage, ambulating well. - Pain well controlled with ibuprofen 600mg Q4H PRN - Routine care -- OOB, ambulation, diet progression as tolerated - After discharge will have 6 week follow-up with Dr. Cuevas. - Hip pain is better today. - Stress induced urinary incontinence is normal at this time and should go away after a little bit of time. Let patient know that she is to call into the office if she continues having incontinence after a couple of weeks or if it is getting worse. - Will D/C today. (2) Type 1 diabetes mellitus affecting , antepartum: - Medicine team consulted. Appreciate recommendations. - Well controlled on Levemir and NovoLog - Will cut insulin dosing in half - Continue to monitor glucose at home. - F/u with endocrine as an outpatient. Day #:: 2 <Renetta Wood, - Last Filed: 02/15/22 08:18> (1) Vaginal delivery: (2) Type 1 diabetes mellitus affecting , antepartum: Subjective <Awais AguilarKatie Dezkathleen - Last Filed: 02/15/22 07:50> Ambulation: ambulating normally Voiding: incontinence Passing Gas:: Yes Diet Tolerance:: regular diet Lochia:: Small Feeding Type:: breast feeding Current Pain Level(1-10): 2 Patient states that she is having some issues with urination. She is having trouble with holding in her urine. States that it leaks a little when she is trying to make it to the bathroom. Review of Systems Denies fever, chills, sweats Denies shortness of breath, difficulty breathing, chest pain, palpitations, chest pressure. Denies breast pain. Denies dysuria. Denies headache or changes in vision. Physical Exam <Awais AguilarKatie Dezkathleen - Last Filed: 02/15/22 07:50> General: Alert, oriented. No acute distress. Cardiac: Regular rate and rhythm, no murmurs/rubs/gallops. Respiratory: Clear to auscultation bilaterally a/p, no wheezes/rales/rhonchi. No increased work of breathing. Symmetrical chest rise. No respiratory distress. Abdomen: Soft, nontender, nondistended. Bowel sounds present. Uterus: Uterine fundus firm, palpable 2 cm below umbilicus. Lower Extremities: No lower extremity edema or swelling. No deep calf pain. Claire's negative bilaterally. Results & Data ([facility]) <Awais Jones DO - Last Filed: 02/15/22 07:50> Vital Signs (Past 12 Hours) Vital Signs Temp Pulse Resp BP Pulse Ox O2 Del Method 02/14/22 23:30 36.6 C 90 16 121/69 97 Room Air 02/14/22 20:45 36.7 C 62 18 106/58 L Room Air <Renetta Wood DO - Last Filed: 02/15/22 08:18> Co-Signing Physician Notes Resident Physician Supervision Note: I was present with Dr. Jones during the history and exam. I discussed the case with the resident and agree with the findings and plan as documented in the note. Any exceptions or clarifications are listed here: PPD#2 doing well, reviewed discharge instructions. DC home, followup in office 6w. Documented By: Renetta Wood DO Resident Activity Tracking <Awais Jones DO - Last Filed: 02/15/22 07:50> Resident Involvement: Resident Care Provided Care Provided: OB Delivery
[2022-02-15] MEDS: INSULIN DETEMIR SC SCH (08:45)
[2022-02-15] MEDS: INSULIN ASPART PER SC SCH (08:46)
[2022-02-15] MEDS: PRENATAL VITAMIN 1 TAB PO SCH (08:50)
[2022-02-15] MEDS: DOCUSATE SODIUM 100 MG CAP PO SCH (08:50)
[2022-02-15 08:53] LABS: Hematocrit (blood only) 24.1 % (34.1-44.9); Hemoglobin 7.5 g/dl (12.0-16.0)
== END 2022-02-15 13:36 | disposition home or self-care (01) | DRG 768 ==
LOC: 4S1 11:18 → 4E2 02-13 09:41
DX: O70.20 Third degree perineal laceration during delivery, unspecified; O26.62 Liver and biliary tract disorders in childbirth; O69.81X0 Labor and delivery complicated by cord around neck, without compression, not applicable or unspecified; E10.9 Type 1 diabetes mellitus without complications; K83.1 Obstruction of bile duct; Z79.82 Long term (current) use of aspirin; Z37.0 Single live birth; Z3A.38 38 weeks gestation of pregnancy; O24.02 Pre-existing type 1 diabetes mellitus, in childbirth